=== PATIENT | female | born 1995 | race Two or more races ===

== ENCOUNTER 2018-10-26 18:08 | Observation (INO) | payer SELFPAY ==
[~2018-10-26] VITALS: Ht 152.4 cm; Wt 92.5 kg
[2018-10-26] MEDS ORDERED: LACTATED RINGER'S 1,000 ML IV ONE (19:01)
[2018-10-26] MEDS ORDERED: LACTATED RINGER'S 1,000 ML IV SCH (19:01)
[2018-10-26] MEDS ORDERED: TERBUTALINE SULFATE 1 MG/ML 1ML VIAL SC ONE ×2 (19:07→19:15)
== END 2018-10-26 20:35 | disposition home or self-care (01) | DRG 833 ==
LOC: LDRP 18:08
PROVIDERS: ADMIT Specialist; ATTEND Specialist
DX: O26.893 Other specified pregnancy related conditions, third trimester (principal); H53.8 Other visual disturbances; O62.9 Abnormality of forces of labor, unspecified; Z3A.36 36 weeks gestation of pregnancy
CPT/HCPCS: 59025; 81002; 96372; G0378; J3105; 96365; 96366

== ENCOUNTER → 2018-11-03 | Outpatient (CLI) | payer MEDICAID ==
[2018-11-03 11:20] LABS: Basophils # (auto) 0 uL; Basophils % (auto) 0.3 % (0.0-2.0); Eosinophils # (auto) 0 uL; Eosinophils % (auto) 0.4 % (0.0-7.0); Hematocrit 39.8 % (36.0-46.0); Hemoglobin 13.4 g/dL (12.2-16.2); Lymphocytes # (auto) 1.7 uL; Lymphocytes % (auto) 14.3 % (10.0-50.0); Mean Corpuscular Hgb Conc. 33.8 g/dL (32.0-36.0); Mean Corpuscular Volume 91.7 fL (80.0-100.0); Monocytes # (auto) 0.6 uL; Monocytes % (auto) 4.9 % (0.0-12.0); Neutrophils # (auto) 9.5 uL; Neutrophils % (auto) 80.1 % (37.0-80.0); Platelet Count (auto) 307 10^3/uL (140-450); Red Blood Cells 4.34 10^6/uL (4.0-5.20); White Blood Cell 11.9 10^3/uL (4.4-10.8)
[2018-11-03 11:56] LABS: Alcohol, Urine < 3.0 mg/dL (0-5); Amphetamine Screen, Urine NEGATIVE (NEGATIVE); Barbiturate Scree,Urine NEGATIVE (NEGATIVE); Benzodiazephine Screen, Urine NEGATIVE (NEGATIVE); Cannabinoid Screen, Urine NEGATIVE (NEGATIVE); Cocaine Screen, Urine NEGATIVE (NEGATIVE); Opiate Scree,Urine NEGATIVE (NEGATIVE); Phencyclidine Screen, Urine NEGATIVE (NEGATIVE)
== END | disposition home or self-care (01) ==
LOC: LAB 10:37
PROVIDERS: ATTEND Specialist
DX: Z34.83 Encounter for supervision of other normal pregnancy, third trimester (principal); Z3A.36 36 weeks gestation of pregnancy
CPT/HCPCS: 36415; 80307; 83036; 85025; 86762; 86850; 86900; 86901; 87340

== ENCOUNTER 2018-11-15 05:20 | Inpatient (IN) | payer MEDICAID ==
[2018-11-15] VITALS (16 sets, daily range): BP systolic 99–136; BP diastolic 61–78
[~2018-11-15] VITALS: Ht 152.4 cm; Wt 97.1 kg
[2018-11-15] MEDS ORDERED: LACTATED RINGER'S 1,000 ML IV SCH (05:33)
[2018-11-15 06:49] LABS: Basophils # (auto) 0.1 uL; Basophils % (auto) 0.6 % (0.0-2.0); Eosinophils # (auto) 0.1 uL; Eosinophils % (auto) 0.8 % (0.0-7.0); Hematocrit 36.3 % (36.0-46.0); Hemoglobin 12.2 g/dL (12.2-16.2); Mean Corpuscular Hemoglobin 31.3 pg (28.0-32.0); Mean Corpuscular Hgb Conc. 33.7 g/dL (32.0-36.0); Mean Corpuscular Volume 92.8 fL (80.0-100.0); Monocytes # (auto) 0.9 uL; Neutrophils # (auto) 9.4 uL; Neutrophils % (auto) 75.6 % (37.0-80.0); Nucleated Red Blood Cells % 0.1 %; Platelet Count (auto) 250 10^3/uL (140-450); Red Blood Cells 3.91 10^6/uL (4.0-5.20); Red Cell Distribution Width 13.5 % (11.8-14.3); White Blood Cell 12.4 10^3/uL (4.4-10.8)
[2018-11-15 07:14] LABS: Albumin 2.5 g/dL (3.4-5.0); Calcium 8.2 mg/dL (8.5-10.1); Potassium 3.7 mmol/L (3.5-5.1)
[2018-11-15] MEDS ORDERED: TERBUTALINE SULFATE 1 MG/ML 1ML VIAL SC ONE (07:15)
[2018-11-15 07:17] LABS: BUN/Creatinine Ratio 14.8; Bilirubin, Total 0.3 mg/dL (0.2-1.0); Total Protein 6.1 g/dL (6.4-8.2)
[2018-11-15 07:32] LABS: Urine Bacteria FEW /hpf (None Seen); Urine Blood Negative /uL (Negative); Urine Mucus FEW (None Seen); Urine Specific Gravity 1.023 (1.001-1.035); Urine WBC 2 /hpf (0 - 5)
[2018-11-15 07:34] LABS: INR 0.86 (0.9-1.15); Partial Thromboplastin Time 27.2 sec (23.78-33.04); Prothrombin Time 9.3 sec (9.27-12.13)
[2018-11-15] MEDS ORDERED: PREN-96 PO (07:53)
[2018-11-15] MEDS ORDERED: fentaNYL CITRATE 100 MCG/2 ML VL ONE (09:10)
[2018-11-15] MEDS ORDERED: MORPHINE SULF(PF) 0.5MG/ML 10ML VIAL ONE (09:11)
[2018-11-15] MEDS ORDERED: ceFAZolin 1GM VL ONE (09:39)
[2018-11-15] MEDS ORDERED: GLYCOPYRROLATE 0.2 MG/ML 1ML VIAL ONE (09:39)
[2018-11-15] MEDS ORDERED: HYDROmorphone HCL 2 MG/ML VL IV PRN (10:45)
[2018-11-15] MEDS ORDERED: MORPHINE SULFATE 4 MG/ML SYR/VIAL IV PRN (10:45)
[2018-11-15] MEDS ORDERED: NALOXONE HCL 0.4 MG/ML VIAL IV PRN (10:45)
[2018-11-15] MEDS ORDERED: diphenhdrAMINE HCL 50 MG/1 ML VL IV PRN (10:45)
[2018-11-15] MEDS ORDERED: ONDANSETRON HCL 4 MG/2 ML VIAL IV PRN ×2 (10:45)
--- NOTE | 2018-11-15 11:45 | NUR ---
Post Op for LDRP: Received patient from PACU via bed to room 108 A. Patient A/A/Ox4, abdominal binder and bilateral SCD's are in place, IV fluids placed on pump and infusing per order, incisional site dressing clean/dry/intact and Barrow Catheter to gravity draining clear yellow urine. Incentive Spirometer at bedside and instruction on proper use with return demonstration done by patient.
[2018-11-15] MEDS: KETOROLAC TROMETH 30 MG/ML 1ML VIAL IV SCH ×2 (12:00→18:08)
--- NOTE | 2018-11-15 15:00 | NUR ---
Teaching: Reviewed information in [employer] booklet with patient. Discussed benefits of and risks associated with not . Discussed different positions, proper latch, feeding cues, and baby-led . BONDING WELL. . All questions and concerns addressed at this time. Patient verbalized understanding of information.
[2018-11-15] MEDS ORDERED: ceFAZolin 1GM/50ML 50 ML IV SCH (16:00)
[2018-11-15] MEDS: ceFAZolin 1GM/50ML 50 ML IV SCH (18:08)
[2018-11-15] MEDS: LACTATED RINGER'S 1,000 ML IV SCH ×2 (18:08→18:43)
--- NOTE | 2018-11-15 22:05 | NUR ---
Patient up out of bed with standby assistance of RN. Pt VS WNL, bleeding scant, abdominal bandage removed. Incision clean, dry in tact. All tamera in tact. Patient ambulated with steady gait to restroom, patient denies any lightheadedness, weakness or dizziness. All bed linens changed, patient returned to bed with steady gait.
--- NOTE | 2018-11-15 22:30 | NUR ---
Barrow Cath removed per order following deflation of balloon. Education provided by RN regarding use of restroom and need to call RN for assistance. Pia care provided to patient by RN, pads replaced. Abdominal binder replaced.
[2018-11-16] MEDS: KETOROLAC TROMETH 30 MG/ML 1ML VIAL IV SCH ×2 (00:01→07:09)
[2018-11-16] MEDS: LACTATED RINGER'S 1,000 ML IV SCH (02:10)
[2018-11-16] MEDS: ceFAZolin 1GM/50ML 50 ML IV SCH ×2 (02:14→09:47)
[2018-11-16 02:43] VITALS: BP 119/66
--- NOTE | 2018-11-16 06:18 | NUR ---
ASSUMED CARE OF STABLE PT AFTER RECEIVING REPORT FROM DO AGUIRRE RN.
--- NOTE | 2018-11-16 06:30 | NUR ---
ROUNDS MADE, ASSESS COMPLETE, PT CONDITION STABLE AT THIS TIME.
[2018-11-16 06:53] LABS: Basophils # (auto) 0 uL; Basophils % (auto) 0.3 % (0.0-2.0); Eosinophils # (auto) 0 uL; Eosinophils % (auto) 0.2 % (0.0-7.0); Hematocrit 33.2 % (36.0-46.0); Hemoglobin 11.4 g/dL (12.2-16.2); Lymphocytes # (auto) 1.9 uL; Lymphocytes % (auto) 13.9 % (10.0-50.0); Mean Corpuscular Hemoglobin 31.9 pg (28.0-32.0); Mean Corpuscular Hgb Conc. 34.2 g/dL (32.0-36.0); Mean Corpuscular Volume 93.4 fL (80.0-100.0); Monocytes # (auto) 0.7 uL; Monocytes % (auto) 4.9 % (0.0-12.0); Neutrophils # (auto) 11.2 uL; Neutrophils % (auto) 80.7 % (37.0-80.0); Nucleated Red Blood Cells % 0.1 %; Platelet Count (auto) 237 10^3/uL (140-450); Red Blood Cells 3.56 10^6/uL (4.0-5.20); Red Cell Distribution Width 13.7 % (11.8-14.3); White Blood Cell 13.9 10^3/uL (4.4-10.8)
[2018-11-16 07:00] VITALS: BP 140/88
--- NOTE | 2018-11-16 07:09 | NUR ---
PT MEDICATED WITH TORADOL 30MG IVP PER ORDERS FOR INCISIONAL PAIN RATING 7/10. PT TOLERATED MEDICATION WELL. WILL REASSESS IN ONE HOUR.
[2018-11-16] MEDS ORDERED: LACTATED RINGER'S 1,000 ML IV SCH (08:01)
[2018-11-16] MEDS ORDERED: BISACODYL 10 MG RECT SUPP PR PRN (08:15)
[2018-11-16] MEDS ORDERED: HYDROcodone-ACET 5/325MG TAB PO PRN (08:15)
[2018-11-16] MEDS: DOCUSATE CALCIUM 240 MG CAP PO SCH (09:47)
[2018-11-16] MEDS: DOCUSATE SOD 100 MG CAP PO SCH ×2 (09:47→21:59)
[2018-11-16] MEDS: IBUPROFEN 800 MG TAB PO PRN ×2 (09:48→18:05)
[2018-11-16 11:00] VITALS: BP 129/81
[2018-11-16] MEDS: SIMETHICONE 80 MG CHEWABLE TABLET PO SCH ×3 (12:24→21:59)
[2018-11-16] MEDS: HYDROcodone-ACET 5/325MG TAB PO PRN ×2 (13:50→21:59)
--- NOTE | 2018-11-16 13:50 | NUR ---
PT MEDICATED WITH NORCO TWO 5MG TABS PO PER ORDERS FOR INCISIONAL PAIN RATING 5/10.
[2018-11-16 15:00] VITALS: BP 151/84
--- NOTE | 2018-11-16 18:15 | NUR ---
REPORT ON STABLE PT GIVEN TO Rohan HOOVER RN.
[2018-11-16 19:20] VITALS: BP 136/86
[2018-11-16 22:42] VITALS: BP 136/87
[2018-11-17] MEDS: HYDROcodone-ACET 5/325MG TAB PO PRN ×3 (03:17→19:37)
[2018-11-17 03:30] VITALS: BP 139/89
[2018-11-17] MEDS: SIMETHICONE 80 MG CHEWABLE TABLET PO SCH ×4 (05:40→22:00)
[2018-11-17 06:45] VITALS: BP 138/82
[2018-11-17] MEDS: DOCUSATE CALCIUM 240 MG CAP PO SCH (10:02)
[2018-11-17] MEDS: IBUPROFEN 800 MG TAB PO PRN ×2 (10:02→17:58)
[2018-11-17] MEDS: DOCUSATE SOD 100 MG CAP PO SCH ×2 (10:02→19:36)
[2018-11-17 11:30] VITALS: BP 133/84
[2018-11-17 15:00] VITALS: BP 135/82
[2018-11-17 19:17] VITALS: BP 127/82
[2018-11-17 22:49] VITALS: BP 140/88
[2018-11-18 03:00] VITALS: BP 126/70
[2018-11-18] MEDS: IBUPROFEN 800 MG TAB PO PRN (03:51)
[2018-11-18] MEDS: SIMETHICONE 80 MG CHEWABLE TABLET PO SCH ×2 (06:00→12:00)
[2018-11-18 07:00] VITALS: BP 126/80
--- NOTE | 2018-11-18 08:40 | NUR ---
Discharge: Discharge instructions given as ordered. Pt encouraged to follow up with CODING COMPLIANCE AUDITOR as instructed. All questions and concerns addressed. Patient verbalized understanding. Medication reconciliation completed and copy given to patient. Patient encouraged to prepare to depart unit.
[2018-11-18] MEDS: DOCUSATE CALCIUM 240 MG CAP PO SCH (10:07)
[2018-11-18] MEDS: DOCUSATE SOD 100 MG CAP PO SCH (10:07)
[2018-11-18] MEDS: HYDROcodone-ACET 5/325MG TAB PO PRN (10:12)
[2018-11-18 11:05] VITALS: BP 132/74
--- NOTE | 2018-11-18 11:45 | NUR ---
PT GIVEN DISCHARGE PRESCRIPTION FILLED BY [facility].
--- NOTE | 2018-11-18 12:15 | NUR ---
Discharge: Patient taken to vehicle ambulatory via steady gait, pt refused wheelchair with all personal belongings, accompanied by staff and family member. No distress noted at time of departure, no adverse changes in status since initial assessment.
== END 2018-11-18 12:15 | disposition home or self-care (01) | DRG 540 ==
LOC: LDRP 05:20
PROVIDERS: ADMIT Obstetrics & Gynecology; ATTEND Obstetrics & Gynecology
PROC: 10D00Z1 Extraction of Products of Conception, Low, Open Approach (ICD-10-PCS; principal; 2018-11-15 09:03)
DX: O34.211 Maternal care for low transverse scar from previous cesarean delivery (principal); K66.0 Peritoneal adhesions (postprocedural) (postinfection); O99.62 Diseases of the digestive system complicating childbirth; O77.0 Labor and delivery complicated by meconium in amniotic fluid; Z37.0 Single live birth; Z3A.39 39 weeks gestation of pregnancy
CPT/HCPCS: 36415; 80053; 81001; 85025; 85610; 85730; 86592; 86850; 86900; 86901; 96361; 96366; 96375; G0378; J0690; J1885

== ENCOUNTER 2019-01-21 02:14 | Inpatient (IN) | payer MEDICAID ==
[~2019-01-21] VITALS: Ht 152.4 cm; Wt 93.7 kg
[~2019-01-21 02:14] MED LIST: PREN-96 PO
[2019-01-21 03:01] LABS: Basophils # (auto) 0 uL; Basophils % (auto) 0.4 % (0.0-2.0); Eosinophils # (auto) 0.2 uL; Eosinophils % (auto) 2.3 % (0.0-7.0); Hematocrit 35.3 % (36.0-46.0); Lymphocytes # (auto) 2.5 uL; Mean Corpuscular Hemoglobin 31.2 pg (28.0-32.0); Mean Corpuscular Volume 91.8 fL (80.0-100.0); Monocytes # (auto) 0.6 uL; Monocytes % (auto) 7.1 % (0.0-12.0); Neutrophils # (auto) 5.7 uL; Neutrophils % (auto) 63.2 % (37.0-80.0); Nucleated Red Blood Cells % 0.1 %; Platelet Count (auto) 388 10^3/uL (140-450); Red Blood Cells 3.84 10^6/uL (4.0-5.20); White Blood Cell 9.1 10^3/uL (4.4-10.8)
[2019-01-21 03:18] LABS: Albumin 3.5 g/dL (3.4-5.0); Calcium 8.8 mg/dL (8.5-10.1); Magnesium 2.2 mg/dL (1.6-2.6); Potassium 3.9 mmol/L (3.5-5.1)
[2019-01-21 03:21] LABS: BUN/Creatinine Ratio 20.8; Bilirubin, Total 0.2 mg/dL (0.2-1.0); Total Protein 7.3 g/dL (6.4-8.2)
[2019-01-21] MEDS ORDERED: ONDANSETRON HCL 4 MG/2 ML VIAL IV ONE (03:45)
[2019-01-21] MEDS ORDERED: HYDROmorphone HCL 2 MG/ML VL IV ONE (03:45)
[2019-01-21 04:34] LABS: INR < 0.93 (0.9-1.15); Partial Thromboplastin Time 27.9 sec (23.64-32.05)
[2019-01-21 05:09] LABS: Urine Bacteria NONE SEEN /hpf (None Seen); Urine Blood Negative /uL (Negative); Urine Mucus FEW (None Seen); Urine Specific Gravity 1.028 (1.001-1.035); Urine WBC 2 /hpf (0 - 5)
[2019-01-21] MEDS ORDERED: PIPERACILLIN-TAZOB 3.375GM 100 ML IV ONE (09:30)
[2019-01-21] MEDS ORDERED: PROMETHAZINE HCL 25 MG/ML 1ML IV PRN (10:15)
[2019-01-21] MEDS ORDERED: MORPHINE SULF INJ 2 MG/ML SYRINGE 1ML IV PRN (10:15)
[2019-01-21] MEDS ORDERED: FAMOTIDINE (10MG/ML) 2ML VL IV SCH (10:15)
[2019-01-21] MEDS ORDERED: cefTRIAXone 1GM/50ML D5W 50 ML IV ONE (10:15)
[2019-01-21] MEDS ORDERED: MORPHINE SULFATE 4 MG/ML SYR/VIAL IV PRN (10:15)
[2019-01-21] MEDS ORDERED: SODIUM CHLORIDE 0.9% 1,000 ML IV ONE (10:15)
--- NOTE | 2019-01-21 10:55 | NUR ---
Opening Note Patient brought to floor from ER, was given report by Lala Lee RN. Patient is A & O x4, ambulatory, no s/s of distress at this time. Patient reports a headache 5/10 at this time, but says "it is tolerable" will notify MD. Bed is in low, locked position, call light within reach, POC discussed with patient. Will continue to monitor Q1h and PRN.
--- NOTE | 2019-01-21 11:52 | NUR ---
Spoke to Dr. Agarwal Received orders, read back, and verified.
[2019-01-21] MEDS: ACETAMINOPHEN 500 MG TAB PO PRN (12:58)
[2019-01-21] MEDS: FAMOTIDINE (10MG/ML) 2ML VL IV SCH ×2 (12:58→22:17)
[2019-01-21] MEDS: SODIUM CHLORIDE 0.9% 1,000 ML IV SCH ×2 (12:59→20:14)
[2019-01-21 13:00] VITALS: BP 109/57
--- NOTE | 2019-01-21 13:00 | NUR ---
No home medications taken per patient.
[2019-01-21] MEDS: metroNIDAZOLE 500MG/100ML 100 ML IV SCH ×2 (16:07→22:17)
[2019-01-21 17:45] VITALS: BP 98/58
--- NOTE | 2019-01-21 19:55 | NUR ---
Opening Shift Note Assumed care of patient, awake and alert and oriented x 4. No S/S of distress/SOB or pain. Patient is on room air and ambulatory. Bed in lowest locked position, side rails up x 2, call light within reach. Instructed on POC and to call for assist PRN, will continue to monitor for changes Q1hr and PRN.
[2019-01-21 20:00] VITALS: BP 105/62
[2019-01-21 22:00] VITALS: BP 105/62
[2019-01-22] VITALS (7 sets, daily range): BP systolic 97–125; BP diastolic 39–75
[2019-01-22] MEDS: SODIUM CHLORIDE 0.9% 1,000 ML IV SCH ×2 (05:35→17:46)
[2019-01-22] MEDS: metroNIDAZOLE 500MG/100ML 100 ML IV SCH ×2 (05:35→13:58)
[2019-01-22] MEDS: ACETAMINOPHEN 500 MG TAB PO PRN (05:36)
--- NOTE | 2019-01-22 06:54 | NUR ---
Closing shift note Patient resting in bed. No acute S/S of distress or SOB. Family member at bedside. Bed in lowest locked position, side rails up x 2, call light within reach. Will endorse care to dayshift RN.
[2019-01-22 07:25] LABS: Calcium 8.4 mg/dL (8.5-10.1); Chloride 109 mmol/L (98-107); Glucose 100 mg/dL (74-106); Potassium 4.4 mmol/L (3.5-5.1); Sodium 142 mmol/L (136-145)
[2019-01-22 07:33] LABS: Alanine Aminotransferase 58 U/L (13-56); Albumin 3.1 g/dL (3.4-5.0); Alkaline Phosphatase 80 U/L (45-117); Anion Gap 9 (5-15); Aspartate Aminotransferase 27 U/L (15-37); BUN/Creatinine Ratio 12.9; Bilirubin, Total 0.2 mg/dL (0.2-1.0); Blood Urea Nitrogen 11 mg/dL (7-18); Carbon Dioxide 24 mmol/L (21-32); GFR African American 105 mL/min; GFR Non-African American 87 mL/min; Total Protein 6.8 g/dL (6.4-8.2)
[2019-01-22] MEDS ORDERED: cefTRIAXone 1GM/50ML D5W 50 ML IV SCH (09:00)
[2019-01-22] MEDS: ENOXAPARIN SOD 40 MG/0.4 ML SYRINGE SC SCH (09:19)
[2019-01-22] MEDS: FAMOTIDINE (10MG/ML) 2ML VL IV SCH ×2 (09:19→21:44)
--- NOTE | 2019-01-22 09:30 | NUR ---
Opening Shift Note Assumed care of patient, awake and alert. No S/S of distress/SOB or pain. Instructed on POC and to call for assist PRN, will continue to monitor for changes Q1hr and PRN.
--- NOTE | 2019-01-22 10:00 | NUR ---
Dr. Culp at bedside discussed with patient.
--- NOTE | 2019-01-22 12:00 | NUR ---
Dr. Medina at bedside.
[2019-01-22] MEDS: PIPERACILLIN-TAZOB 3.375GM 100 ML IV SCH ×2 (17:45→23:45)
--- NOTE | 2019-01-22 20:00 | NUR ---
Opening Shift Note Assumed care of patient, awake, alert and oriented x 4. On room air and ambulatory. No S/S of distress/SOB or pain. Patient NPO after midnight for surgery. Instructed on POC and to call for assist PRN, will continue to monitor for changes Q1hr and PRN.
[2019-01-23] MEDS: SODIUM CHLORIDE 0.9% 1,000 ML IV SCH ×2 (02:14→12:14)
[2019-01-23] MEDS: PIPERACILLIN-TAZOB 3.375GM 100 ML IV SCH ×2 (03:03→14:00)
--- NOTE | 2019-01-23 03:55 | NUR ---
Patient prepped with CHG wipes. Patient tolerated well. Continue care.
[2019-01-23 05:00] VITALS: BP 110/55
--- NOTE | 2019-01-23 06:43 | NUR ---
Closing shift note Patient resting in bed. No acute S/S of SOB or distress noted. Patient NPO since midnight for surgery. Consents and checklist completed and signed. Awaiting surgery. Will endorse care to dayshift RN.
--- NOTE | 2019-01-23 07:00 | NUR ---
Patient taken down for surgery.
[2019-01-23] MEDS ORDERED: ceFAZolin 1GM/50ML 50 ML IV ONE (07:07)
[2019-01-23] MEDS ORDERED: SUCCINYLCHOLINE CHLORIDE 20 MG/ML 10ML VIAL IV ONE (07:15)
[2019-01-23] MEDS ORDERED: LIDOCAINE 1% HCL (LOCAL ANESTH.) INJ 20ML MDV ONE (07:15)
[2019-01-23] MEDS ORDERED: MIDAZOLAM HCL 1MG/1ML-2 ML VIAL ONE (07:18)
[2019-01-23] MEDS ORDERED: ROCURONIUM 10MG/ML 10ML VIAL IV ONE (07:22)
[2019-01-23] MEDS ORDERED: PROPOFOL 10 MG/ML 20 ML IV ONE (07:22)
[2019-01-23] MEDS ORDERED: METOCLOPRAMIDE HCL 5MG/ml INJ 2ml VIAL ONE (07:28)
[2019-01-23] MEDS ORDERED: fentaNYL CITRATE 100 MCG/2 ML VL ONE (07:28)
[2019-01-23] MEDS ORDERED: NALOXONE HCL 0.4 MG/ML VIAL IV PRN (07:45)
[2019-01-23] MEDS ORDERED: ONDANSETRON HCL 4 MG/2 ML VIAL IV ONE (07:45)
[2019-01-23] MEDS ORDERED: HYDROmorphone HCL 2 MG/ML VL IV PRN (07:45)
[2019-01-23] MEDS ORDERED: NEOSTIGMINE 1 MG/ML INJ (10mg/10ML VIAL) ONE (07:55)
[2019-01-23] MEDS ORDERED: GLYCOPYRROLATE 0.2 MG/ML 1ML VIAL ONE (07:55)
[2019-01-23] MEDS: HYDROmorphone HCL 2 MG/ML VL IV PRN ×2 (08:35→08:48)
[2019-01-23] MEDS: FAMOTIDINE (10MG/ML) 2ML VL IV SCH (10:00)
[2019-01-23] MEDS: ENOXAPARIN SOD 40 MG/0.4 ML SYRINGE SC SCH (10:00)
--- NOTE | 2019-01-23 10:00 | NUR ---
Received patient from Post-Op. Assumed care of patient, awake and alert. No S/S of distress/SOB, but patient reports medial abdominal pain of 5/10. IV is in right forearm 22 gauge asymptomatic, intact, patent, and infusing normal saline at 100 mL/hour. Bed is locked and in lowest position and call light is within reach. Instructed on POC and to call for assist PRN, and patient verbalized understanding. Will continue to monitor for changes Q1hr and PRN.
--- NOTE | 2019-01-23 10:00 | NUR ---
Patient returned from Post-Op via hospital bed. Patient lying supine in bed and reports pain in abdomen of 7/10. Will continue to monitor patient Q1.
--- NOTE | 2019-01-23 10:30 | NUR ---
Dr. Medina, Hospitalist, at bedside. No new orders received.
[2019-01-23 13:00] VITALS: BP 128/76
[2019-01-23 17:01] VITALS: BP 125/73
--- NOTE | 2019-01-23 17:55 | NUR ---
Patient is requesting to leave the hospital. Patient signed AMA form to leave. All questions and concerns addressed. Patient verbalized understanding. IV removed with catheter intact, pressure dressing applied. Patient walked to vehicle with all personal belongings, accompanied by family member. No distress noted at time of departure.
== END 2019-01-23 17:58 | disposition left against medical advice (07) | DRG 263 ==
LOC: ER 02:17 → OVERFLOW 10:14 → WEST WING 11:05
PROVIDERS: ADMIT Internal Medicine; ATTEND Internal Medicine
PROC: 0FT44ZZ Resection of Gallbladder, Percutaneous Endoscopic Approach (ICD-10-PCS; principal; 2019-01-23 07:14)
DX: K80.12 Calculus of gallbladder with acute and chronic cholecystitis without obstruction (principal); I95.9 Hypotension, unspecified; K76.0 Fatty (change of) liver, not elsewhere classified; E66.9 Obesity, unspecified; N39.0 Urinary tract infection, site not specified; M54.9 Dorsalgia, unspecified; Z68.39 Body mass index [BMI] 39.0-39.9, adult; Z98.891 History of uterine scar from previous surgery; Z53.21 Procedure and treatment not carried out due to patient leaving prior to being seen by health care provider
CPT/HCPCS: 36415; 71045; 76705; 80053; 81001; 81025; 82150; 83690; 83735; 85025; 85610; 85730; 86850; 86900; 86901; 87040; 87086; 94761; 96374; 96375; G0378; J0330; J0690; J0696; J2001; J2250; J2405; J2543; J2704; J3490